=== PATIENT | female | born 1970 | race Caucasian/White ===

== ENCOUNTER 2021-03-16 10:06 | Inpatient (IN) | payer OTHER ==
[2021-03-16 10:31] VITALS: BMI 30.5
[2021-03-16] MEDS ORDERED: SODIUM CHLORIDE 0.9% 1000 ML INFUS.BAG IV ONE (11:21)
[2021-03-16 11:26] LABS: ALBUMIN 3.8 g/dl (3.4-5.0); BILIRUBIN,TOTAL 0.6 mg/dl (0.2-1); CALCIUM 9.3 mg/dl (8.5-10); CREATININE 0.9 mg/dl (0.55-1.3); TOT PROT 6.7 g/dl (6.4-8.2)
[2021-03-16 11:58] LABS: INR 1.06 (0.83-1.09); PROTHROMBIN TIME (PATIENT) 11.8 SEC (9.7-13.0)
[2021-03-16 12:06] LABS: ACTIVATED PTT 27.6 SECONDS (25.2-36.5)
[2021-03-16 12:08] LABS: BASO % 0.5 % (0-2.0); EOS % 2.5 % (0-4.5); HEMATOCRIT 32.6 % (32.4-45.2); HEMOGLOBIN 10.8 GM/dL (10.7-15.3); LYMPH % 31.9 % (8-40); MCH 29.7 pg (25.7-33.7); MCHC 33.2 g/dl (32.0-36.0); MEAN CELL VOLUME 89.7 fl (80-96); MEAN PLT VOLUME 10.5 fl (7.5-11.1); MONO % 5.9 % (3.8-10.2); NEUT % 59.2 % (42.8-82.8); PLATELET COUNT 260 10^3/uL (134-434); RBC 3.63 M/mm3 (3.60-5.2); RDW 13.8 % (11.6-15.6); WHITE BLOOD COUNT 7.8 K/mm3 (4.0-10.0)
[2021-03-16] MEDS ORDERED: HEPARIN NA (PORCINE) 5,000 UNITS/ML 1ML VIAL IVPUSH PRN ×2 (14:09)
[2021-03-16] MEDS ORDERED: HEPARIN INFUSION - 25,000 UNITS/500 ML INFUS.BAG IVPB ONE (14:18)
[2021-03-16] MEDS ORDERED: WARFARIN NA 5 MG TABLET PO SCH (18:00)
[2021-03-16] MEDS ORDERED: LISINOPRIL 10 MG TABLET PO ONE (19:27)
[2021-03-16] MEDS: HEPARIN INFUSION - 25,000 UNITS/500 ML INFUS.BAG IVPB SCH (20:47)
[2021-03-16] MEDS: SERTRALINE HCL 25 MG TABLET (FP) PO SCH (21:20)
[2021-03-17 07:45] LABS: INR 1.16 (0.83-1.09); PROTHROMBIN TIME (PATIENT) 12.9 SEC (9.7-13.0)
[2021-03-17 07:48] LABS: ALBUMIN 3.5 g/dl (3.4-5.0); BILIRUBIN,TOTAL 0.7 mg/dl (0.2-1); CALCIUM 8.5 mg/dl (8.5-10); CREATININE 0.7 mg/dl (0.55-1.3); MAGNESIUM 1.9 mg/dL (1.8-2.4); TOT PROT 6.1 g/dl (6.4-8.2)
[2021-03-17] MEDS ORDERED: ACETAMINOPHEN 325 MG TABLET (FP) ONE (09:00)
[2021-03-17] MEDS ORDERED: ACETAMINOPHEN 325 MG TABLET (FP) PO PRN (09:16)
[2021-03-17 09:23] LABS: BASO % 0.7 % (0-2.0); EOS % 2.8 % (0-4.5); HEMATOCRIT 30.1 % (32.4-45.2); HEMOGLOBIN 10.1 GM/dL (10.7-15.3); LYMPH % 39.5 % (8-40); MCH 30.2 pg (25.7-33.7); MCHC 33.6 g/dl (32.0-36.0); MEAN CELL VOLUME 90.1 fl (80-96); MEAN PLT VOLUME 10.4 fl (7.5-11.1); MONO % 5.3 % (3.8-10.2); NEUT % 51.7 % (42.8-82.8); PLATELET COUNT 245 10^3/uL (134-434); RBC 3.34 M/mm3 (3.60-5.2); RDW 13.8 % (11.6-15.6)
[2021-03-17] MEDS: LISINOPRIL 10 MG TABLET PO SCH (09:43)
[2021-03-17 13:22] LABS: ACTIVATED PTT 58.6 SECONDS (25.2-36.5)
[2021-03-17 13:26] LABS: INR 1.13 (0.83-1.09); PROTHROMBIN TIME (PATIENT) 12.5 SEC (9.7-13.0)
[2021-03-17] MEDS: HEPARIN INFUSION - 25,000 UNITS/500 ML INFUS.BAG IVPB SCH (14:15)
[2021-03-17] MEDS ORDERED: WARFARIN NA 7.5 MG TABLET PO SCH (18:00)
[2021-03-17] MEDS: SERTRALINE HCL 25 MG TABLET (FP) PO SCH (21:27)
[2021-03-18 08:34] LABS: ALBUMIN 3.2 g/dl (3.4-5.0); BILIRUBIN,TOTAL 0.5 mg/dl (0.2-1); CALCIUM 8.4 mg/dl (8.5-10); CREATININE 0.8 mg/dl (0.55-1.3); MAGNESIUM 1.8 mg/dL (1.8-2.4); TOT PROT 5.7 g/dl (6.4-8.2)
[2021-03-18 09:08] LABS: ACTIVATED PTT 70.7 SECONDS (25.2-36.5)
[2021-03-18 09:12] LABS: INR 1.43 (0.83-1.09); PROTHROMBIN TIME (PATIENT) 15.9 SEC (9.7-13.0)
[2021-03-18 09:28] LABS: BASO % 0.5 % (0-2.0); HEMATOCRIT 29.2 % (32.4-45.2); HEMOGLOBIN 9.7 GM/dL (10.7-15.3); LYMPH % 39.1 % (8-40); MCH 29.8 pg (25.7-33.7); MEAN CELL VOLUME 90.1 fl (80-96); MEAN PLT VOLUME 10.2 fl (7.5-11.1); MONO % 5.8 % (3.8-10.2); NEUT % 51.6 % (42.8-82.8); PLATELET COUNT 219 10^3/uL (134-434); RBC 3.25 M/mm3 (3.60-5.2); RDW 13.6 % (11.6-15.6); WHITE BLOOD COUNT 6.4 K/mm3 (4.0-10.0)
[2021-03-18] MEDS: LISINOPRIL 10 MG TABLET PO SCH (09:36)
[2021-03-18 09:41] VITALS: TEMP 98.2
[2021-03-18] MEDS ORDERED: ENOXAPARIN NA (PORCINE) 40 MG/0.4 ML DISP.SYRIN SQ SCH (11:00)
[2021-03-18] MEDS ORDERED: ENOXAPARIN NA (PORCINE) 100 MG/1 ML DISP.SYRIN SQ SCH (11:30)
[2021-03-18] MEDS ORDERED: ENOXAPARIN NA (PORCINE) 80 MG/0.8 ML DISP.SYRIN SQ SCH (11:30)
[2021-03-18 14:10] VITALS: BP 142/78; PULSE 85
== END 2021-03-18 14:50 | disposition home or self-care (01) | DRG 134 ==
LOC: FER 10:06 → UNDOADMIN 14:13 → FM/S 14:13
PROVIDERS: ADMIT Internal Medicine; ATTEND Nurse Practitioner Acute Care
DX: I26.99 Other pulmonary embolism without acute cor pulmonale (principal); E04.1 Nontoxic single thyroid nodule; I10 Essential (primary) hypertension; F32.A Depression, unspecified; F41.9 Anxiety disorder, unspecified; Z86.718 Personal history of other venous thrombosis and embolism; R82.81 Pyuria; R00.0 Tachycardia, unspecified
CPT/HCPCS: 36415; 71275-TC; 80053; 82550; 83735; 84443; 84484; 84703; 85025; 85610; 85730; 93005; 93306-TC; 93970-TC; 99285-25; C9803; J1644; Q9967; U0003; U0005